=== PATIENT | female | born 1995 | race American Indian/Alaskan Native ===

== ENCOUNTER 2022-07-02 19:14 | Inpatient (IN) | payer OTHER ==
[2022-07-02] MEDS ORDERED: LIDOCAINE (2%) 20 MG/1 ML VIAL 20 ML MDV INFILTRATI ONE (20:16)
[2022-07-02] MEDS ORDERED: CARBOPROST TROMETHAMINE 250 MCG/1 ML INJ IM PRN (20:16)
[2022-07-02] MEDS ORDERED: miSOPROStol 200 MCG TAB PR PRN (20:16)
[2022-07-02] MEDS ORDERED: METHYLERGONOVINE MALEATE 0.2 MG/ML VIAL IM PRN (20:16)
[2022-07-02] MEDS ORDERED: ePHEDrine SULFATE 50 MG/1 ML INJ IV PRN ×2 (20:16→22:27)
[2022-07-02] MEDS ORDERED: BUTORPHANOL 2 MG/1 ML INJ IV PRN ×2 (20:16)
[2022-07-02] MEDS ORDERED: OXYTOCIN 10 UNIT/1 ML INJ IM PRN (20:16)
[2022-07-02] MEDS ORDERED: ONDANSETRON 4 MG/2 ML INJ IV PRN (20:16)
[2022-07-02] MEDS ORDERED: AMPICILLIN/NS 2 GM/100 ML 2 GM/100 ML BAG IV ONE (20:16)
[2022-07-02] MEDS ORDERED: MINERAL OIL 30 ML ORAL LIQD PO PRN (20:16)
[2022-07-02] MEDS ORDERED: TERBUTALINE 1 MG/1 ML INJ SUB-Q PRN (20:16)
[2022-07-02] MEDS ORDERED: LOPERAMIDE 2 MG CAP PO PRN (20:16)
[2022-07-02] MEDS ORDERED: LACTATED RINGERS 1,000 ML ONE (20:20)
[2022-07-02] MEDS ORDERED: LACTATED RINGERS 1,000 ML IV SCH ×2 (20:30→23:15)
[2022-07-02 20:58] LABS: Hematocrit 34.6 % (30.3-42.9); Hemoglobin 11.4 gm/dl (10.1-14.3); Mean Corpuscular HGB Conc 33 % (30-34); Mean Corpuscular Volume 74 fl (79-97); Platelet Count 193 K/mm3 (140-440); Red Blood Count 4.64 M/mm3 (3.65-5.03)
[2022-07-02] MEDS ORDERED: OXYTOCIN DRIP 30 UNITS/500 ML BAG IV SCH ×2 (21:00→23:45)
[2022-07-02 21:32] LABS: Hepatitis C Virus Antibody Non-Reactive (NonReactive)
[2022-07-02] MEDS ORDERED: SODIUM CHLORIDE 0.9% 500 ML 500 ML IV ONE (21:41)
[2022-07-02 21:44] LABS: Alanine Aminotransferase 10 units/L (7-56); Uric Acid 4.8 mg/dL (3.5-7.6)
[2022-07-02] MEDS ORDERED: fentaNYL-BUPIV 2 MCG/ML-0.125% 200 MCG/100 ML BAG EPIDURAL SCH (22:27)
[2022-07-02] MEDS ORDERED: NALOXONE 0.4 MG/1 ML INJ IV PRN (22:27)
--- NOTE | 2022-07-02 22:29 | Anesthesia Consultation ---
Anesthesia Consult and Med Hx Date of service: 07/02/22 - Airway Anesthetic Teeth Evaluation: Good ROM Head & Neck: Adequate Mental/Hyoid Distance: Adequate Mallampati Class: Class II Intubation Access Assessment: Probably Good - Pulmonary Exam CTA: Yes - Cardiac Exam Cardiac Exam: RRR - Pre-Operative Health Status ASA Pre-Surgery Classification: ASA2 Proposed Anesthetic Plan: Epidural - Pulmonary Hx Smoking: No Hx Asthma: No Hx Respiratory Symptoms: No SOB: No COPD: No Home Oxygen Therapy: No Hx Pneumonia: No Hx Sleep Apnea: No - Cardiovascular System Hx Hypertension: No Hx Coronary Artery Disease: No Hx Heart Attack/AMI: No Hx Angina: No Hx Percutaneous Transluminal Coronary Angioplasty (PTCA): No Hx Cardia Arrhythmia: No Hx Pacemaker: No Hx Internal Defibrillator: No Hx Valvular Heart Disease: No Hx Heart Murmur: No Hx Peripheral Vascular Disease: No - Central Nervous System Hx Neuromuscular Disorder: No Hx Seizures: No CVA: No Hx Back Pain: No Hx Psychiatric Problems: No - Gastrointestinal Hx Ulcer: No Hx Gastroesophageal Reflux Disease: No - Endocrine Hx Renal Disease: No Hx End Stage Renal Disease: No Hx Cirrhosis: No Hx Liver Disease: No Hx Insulin Dependent Diabetes: No Hx Non-Insulin Dependent Diabetes: No Hx Thyroid Disease: No Hx Hypothyroidism: No Hx Hyperthyroidism: No - Hematic Hx Anemia: No Hx Sickle Cell Disease: No - Other Systems Hx Alcohol Use: No Hx Substance Use: No Hx Cancer: No Hx Obesity: No
--- NOTE | 2022-07-02 22:30 | Anesthesia Day of Surgery ---
Anesthesia Day of Surgery - Day of Surgery Patient Examined: Yes Patient H&P Reviewed: Yes Patient is NPO: Yes Beta Blockers: No Cardiac Clearance: No Pulmonary Clearance: No Gregorio's Test: N/A
--- NOTE | 2022-07-02 22:31 | Progress Note ---
Labor Epidural - Labor Epidural Start Time: 22:10 Stop Time: 22:16 Performed by:: SANTIAGO PARIS Procedure: Epidural Requested for Labor Pain. H&P and PT Chart reviewed and consent obtained. Time out performed and the procedure was explained, all questions answered. Patient was placed in a sitting position with monitors applied. The PTs back was prepped and draped in usual sterile fashion. The Skin was localized with 3 mL of 1% lidocaine at L3-L4. A 17-gauge Touhy epidural needle was advanced to ANDREA with saline at 7 cm and no blood/CSF was noted via epidural needle. Epidural catheter was advanced to 12 cm. There was negative aspiration for blood and CSF in the catheter and negative response to a test dose of 3 ml 1.5% lidocaine w/ Epi and a sterile dressing was applied Patient tolerated the procedure well and there were no immediate complications noted.
[2022-07-02] MEDS ORDERED: BICITRA ORAL LIQD 30ML PO ONE (23:09)
[2022-07-02] MEDS ORDERED: METOCLOPRAMIDE 10 MG/2 ML INJ IV ONE (23:09)
[2022-07-02] MEDS ORDERED: FAMOTIDINE 20 MG/2 ML INJ IV ONE (23:09)
[2022-07-02] MEDS ORDERED: BUPIVACAINE/PF (0.5%) 5 MG/1 ML 10 ML VIAL INFILTRATI ONE (23:11)
[2022-07-02] MEDS ORDERED: ePHEDrine SULFATE 50 MG/1 ML INJ ONE (23:17)
[2022-07-02] MEDS ORDERED: SUCCINYLCHOLINE CHLORIDE 200 MG/10 ML INJ MDV ONE (23:21)
[2022-07-02] MEDS ORDERED: CARBOPROST TROMETHAMINE 250 MCG/1 ML INJ IM ONE (23:21)
[2022-07-02] MEDS ORDERED: METHYLERGONOVINE MALEATE 0.2 MG/ML VIAL IM ONE (23:21)
[2022-07-02] MEDS ORDERED: miSOPROStol 200 MCG TAB ONE (23:21)
[2022-07-02] MEDS ORDERED: propofoL 200 MG/20 ML VIAL IV ONE (23:22)
[2022-07-02] MEDS ORDERED: WATER FOR IRRIG STERILE 1,500 ML BOTTLE IR ONE (23:36)
[2022-07-02] MEDS ORDERED: SODIUM CHLORIDE 0.9% IRR 1,500 ML BOTTLE IR ONE (23:36)
[2022-07-02] MEDS ORDERED: ceFAZolin/Water 2 GM/20 ML 2 GM/20 ML SYRINGE IV NR (23:45)
[2022-07-02] MEDS ORDERED: OXYTOCIN 10 UNIT/1 ML INJ ONE (23:47)
[2022-07-02] MEDS ORDERED: SODIUM CHLORIDE 0.9% 100 ML ONE (23:47)
[2022-07-02] MEDS ORDERED: ONDANSETRON 4 MG/2 ML INJ ONE (23:47)
[2022-07-02] MEDS ORDERED: PHENYLEPHRINE/NS 1,000 MCG/10 ML SYRINGE (OR USE) IV ONE (23:47)
[2022-07-03] MEDS ORDERED: LIDOCAINE MPF (2%) 20 MG/1 ML VIAL 5 ML ONE (00:06)
--- NOTE | 2022-07-03 00:39 | XRay Report ---
Pelvis single view INDICATION: Pelvic pain IMPRESSION: Postoperative changes of the pelvis are noted. No metallic foreign body appreciated. Signer Name: Chava Guerrero MD Signed: 07/03/2022 12:34 AM Workstation Name: [id number]
[2022-07-03] MEDS ORDERED: PROMETHAZINE 25 MG TAB PO PRN (00:43)
[2022-07-03] MEDS ORDERED: PROMETHAZINE 25 MG RECT SUPP PR PRN ×2 (00:43→09:00)
[2022-07-03] MEDS ORDERED: HYDROmorphone 1 MG/1 ML INJ IV PRN ×2 (00:43)
[2022-07-03] MEDS ORDERED: NALOXONE 0.4 MG/1 ML INJ IV PRN ×2 (00:43→07:38)
[2022-07-03] MEDS ORDERED: MORPHINE 4 MG/1 ML INJ IV PRN ×2 (00:43→08:30)
[2022-07-03] MEDS ORDERED: ONDANSETRON 4 MG/2 ML INJ IV PRN ×2 (00:43→08:30)
--- NOTE | 2022-07-03 00:58 | History and Physical Report ---
History of Present Illness Date of examination: 07/02/22 Date of admission: 07/02/22 23:54 Chief complaint: Painful contractions. History of present illness: * [1 set of twins] x2 previous cesareans. JOHN 06/23/22. Active labor. Insisting on delivering vaginally. Past History Past Medical History: no pertinent history Past Surgical History: section - Obstetrical History Expected Date of Delivery: 06/23/22 Actual Gestation: 41 Week(s) 3 Day(s) : 3 Para: 3 Medications and Allergies Allergies Allergy/AdvReac Type Severity Reaction Status Date / Time No Known Allergies Allergy Unverified 07/02/22 20:09 Active Meds: Active Medications Butorphanol Tartrate (Butorphanol 2 Mg/1 Ml Inj) 2 mg IV Q2H PRN PRN Reason: Pain , Severe (7-10) Butorphanol Tartrate (Butorphanol 2 Mg/1 Ml Inj) 1 mg IV Q2H PRN PRN Reason: Pain, Moderate(4-6) LABOR PAIN Carboprost Tromethamine (Carboprost Tromethamine 250 Mcg/1 Ml Inj) 250 mcg IM ONCE PRN PRN Reason: Uterine Bleeding Ephedrine Sulfate (Ephedrine Sulfate 50 Mg/1 Ml Inj) 10 mg IV Q2M PRN PRN Reason: Hypotension Hydromorphone HCl (Hydromorphone 1 Mg/1 Ml Inj) 0.5 mg IV Q5M PRN PRN Reason: BREAK Hydromorphone HCl (Hydromorphone 1 Mg/1 Ml Inj) 0.5 mg IV Q4H PRN PRN Reason: breakthrough pain > 7/10 Lactated Ringer's (Lactated Ringers) 1,000 mls @ 125 mls/hr IV DIRECT ORION Last Admin: 07/02/22 21:55 Dose: 125 mls/hr Oxytocin/Sodium Chloride (Pitocin/Ns 30 Unit/500ml) 30 units in 500 mls @ 40 mls/hr IV TITR ORION; Protocol Ampicillin Sodium (Ampicillin/Ns 1 Gm/50 Ml) 1 gm in 50 mls @ 100 mls/hr IV Q4H ORION; Protocol Fentanyl/Bupivacaine/Sodium Chlor (Fentanyl-Bupiv 2 Mcg/Ml-0.125%) 200 mcg in 100 mls @ 12 mls/hr EPIDURAL TITR ORION; Protocol Lactated Ringer's (Lactated Ringers) 1,000 mls @ 2,250 mls/hr IV PREOP ORION Stop: 07/03/22 23:42 Oxytocin/Sodium Chloride (Pitocin/Ns 30 Unit/500ml) 30 units in 500 mls @ 0 mls/hr IV TITR ORION; Protocol Fentanyl/Bupivacaine/Sodium Chlor (Fentanyl-Bupiv 2 Mcg/Ml-0.125%) 200 mcg in 100 mls @ 8 mls/hr EPIDURAL TITRATE ORION; Protocol Loperamide HCl (Loperamide 2 Mg Cap) 2 mg PO ONCE PRN PRN Reason: give with Hemabate Methylergonovine Maleate (Methylergonovine Maleate 0.2 Mg/Ml Vial) 0.2 mg IM ONCE PRN PRN Reason: Uterine Bleeding Mineral Oil (Mineral Oil 30 Ml Oral Liqd) 30 ml PO QHS PRN PRN Reason: Constipation Misoprostol (Misoprostol 200 Mcg Tab) 800 mcg AR ONCE PRN PRN Reason: Uterine Bleeding Morphine Sulfate (Morphine 4 Mg/1 Ml Inj) 2.5 mg IV Q15M PRN PRN Reason: BREAK Naloxone HCl (Naloxone 0.4 Mg/1 Ml Inj) 0.2 mg IV Q5MIN PRN PRN Reason: Respiratory sedation Naloxone HCl (Naloxone 0.4 Mg/1 Ml Inj) 0.2 mg IV Q2MIN PRN PRN Reason: Res Rate </= 8 or 02 SAT < 92% Ondansetron HCl (Ondansetron 4 Mg/2 Ml Inj) 4 mg IV Q8H PRN PRN Reason: Nausea And Vomiting Ondansetron HCl (Ondansetron 4 Mg/2 Ml Inj) 4 mg IV Q8H PRN PRN Reason: Nausea And Vomiting Oxytocin (Oxytocin 10 Unit/1 Ml Inj) 10 unit IM ONCE PRN PRN Reason: Uterine Bleeding Promethazine HCl (Promethazine 25 Mg Tab) 25 mg PO Q6H PRN PRN Reason: Nausea And Vomiting Promethazine HCl (Promethazine 25 Mg Rect Supp) 25 mg AR Q6H PRN PRN Reason: Nausea And Vomiting Sodium Chloride (Sodium Chloride 0.9% 10 Ml Flush Syringe) 10 ml IV PRN NR Terbutaline Sulfate (Terbutaline 1 Mg/1 Ml Inj) 0.25 mg SUB-Q ONCE PRN PRN Reason: Hyperstimulation/Hypertonicity Review of Systems All systems: negative Genitourinary: contractions - Vital Signs Vital signs: Vital Signs Pulse BP Pulse Ox 77 124/72 100 07/02/22 19:52 07/02/22 19:52 07/02/22 19:52 Temp Pulse Resp BP Pulse Ox 112 H 14 109/57 100 07/02/22 23:05 07/02/22 21:39 07/02/22 22:56 07/02/22 23:05 - Physical Exam Lungs: Positive: Normal air movement Abdomen: Positive: distention, normal bowel sounds Genitourinary (Female): Positive: normal external genitalia, normal perenium Vulva: both: normal Vagina: Positive: normal moisture. Negative: discharge Cervix: Negative: lesion, discharge Uterus: Positive: enlarged, normal contour Anus/Rectum: Positive: normal perianal skin Extremities: Positive: normal Deep Tendon Reflex Grade: Normal +2 - Obstetrical FHR: auscultation normal, category 2 Cervical Dilatation: 5 (Patient uncooperative, vag exam was brief.) Cervical Effacement Percentage: 100 station: 0 Uterine Contraction Pattern: Regular Uterine Contraction Intensity: Strong/Firm Results Result Diagrams: 07/02/22 20:15 07/02/22 20:15 Abnormal lab results 07/02/22 07/02/22 07/02/22 Range/Units 20:15 20:15 20:15 WBC 15.1 H (4.5-11.0) K/mm3 MCV 74 L (79-97) fl MCH 25 L (28-32) pg Lactate Dehydrogenase 323 H (91-180) units/L Crossmatch See Detail All other labs normal. Assessment and Plan - Patient Problems (1) with 41 completed weeks gestation Current Visit: Yes Status: Acute (2) Active labor Current Visit: Yes Status: Acute (3) Previous delivery affecting Current Visit: Yes Status: Acute Plan to address problem: Told of the risks of . Also told her delivery will be by if delivery not imminent or other indications emerge.
[2022-07-03] MEDS ORDERED: fentaNYL-BUPIV 2 MCG/ML-0.125% 200 MCG/100 ML BAG EPIDURAL SCH (01:00)
[2022-07-03] MEDS ORDERED: AMPICILLIN/NS 1 GM/50 ML 1 GM/50 ML BAG IV SCH (01:00)
--- NOTE | 2022-07-03 01:12 | Event Note ---
Date: 07/02/[address] ARM done with less than 2cc of clear amni fluid within the IUPC tubing. Cervix 7-8 cm. Station 0+2. 1+ caput. heart decels occurring. Stat called.
--- NOTE | 2022-07-03 01:23 | Operative Report ---
Operative Report Operative Report: Date of surgery: 07/02/2022 Preoperative diagnoses: 41 weeks 2 days gestation, distress, previous section, active labor Postoperative diagnoses: The same. Operation: Lower segment transverse delivery Surgeon:Padmini Calabrese MD Machine Shop Apprentice: Andrew Francisco CRNA Anesthesia: Epidural block plus general anesthesia. Estimated blood loss: 200 mL Complications: None Findings: Live baby boy, vertex deep in the pelvis, 1+ caput, no observable amniotic fluid, wrinkled skin. The fallopian tubes, ovaries and the uterus were all grossly normal. There was a taut band of adhesion binding the anterior surface of the uterus, just superior to the bladder reflection, to the anterior parietal peritoneum. Procedure in detail: The patient was taken to the operating room and given a spinal block. Patient was placed in the straight supine position and a Bucio catheter was inserted. The patient was prepped in the abdomen. The drapes were placed. A timeout was done. With the go ahead from the regional psychiatric director, a Pfannenstiel incision was made. This incision was carried across the subcutaneous layer to the fascia which was also divided transversely. The recti abdominis muscle flaps were stripped from the fascia using a combination of blunt and sharp dissections. The muscles were in the midline to gain access to the anterior parietal peritoneum which was divided after excluding any underlying viscera. The access to the peritoneal cavity was then widened by manual stretching. The bladder blade was applied. The utero vesicle peritoneal flap was divided transversely allowing the bladder to be displaced caudally. The uterine incision was placed in the lower segment transversely. The uterine incision was carried to the decidual layer. The uterine incision was extended on both sides using the bandage scissors. The amniotic sac was ruptured with clear fluid. The head was lifted out of the false maternal pelvis and delivered through the incision using fundal pressure combined with traction using the Kiwi. Extraction was difficult and required widening of the incision and reapplication of the Kiwi x3. The airways were bulb suctioned beginning with the mouth. Continuing fundal pressure combined with traction on the mandibular processes of the jaw delivered the rest of the baby. The umbilical cord was double clamped and divided. The baby was carefully transferred to the pediatric team. The placenta was manually removed from the uterine cavity. The uterine cavity was explored and was empty of any placental remnants. The uterine incision was repaired in 2 layers with #1 Vicryl. The surgical line on the uterus was hemostatic. The band of adhesions described above was divided with the Bovie. Hemostasis and the stumps were checked and were good. Blood and clots were cleared from the peritoneal cavity. The anterior parietal peritoneum was repaired with #1 Vicryl. The fascia was repaired with #1 Vicryl. The subcutaneous layer was made hemostatic using the Bovie before the skin was closed subcuticularly with 4-0 Vicryl. There were no complications. The estimated blood loss was 200 mL. All sponges and instrument counts were correct. An x-ray of the pelvis was obtained at the conclusion of the surgery and showed no evidence of any foreign body within. Patient was safely transferred to the recovery room.
[2022-07-03] MEDS ORDERED: MORPHINE 2 MG/1 ML INJ IV PRN ×3 (07:30→08:30)
[2022-07-03] MEDS ORDERED: IBUPROFEN 600 MG TAB PO PRN (07:38)
[2022-07-03] MEDS ORDERED: ACETAMINOPHEN 325 MG TAB PO PRN (08:00)
[2022-07-03] MEDS ORDERED: WITCH HAZEL/ GLYCERIN PAD TP PRN (08:00)
[2022-07-03] MEDS ORDERED: OXYTOCIN DRIP 30 UNITS/500 ML BAG IV SCH (08:00)
[2022-07-03] MEDS: ceFAZolin/NS 1 GM/50 ML 1 GM/50 ML BAG IV SCH ×2 (08:19→16:45)
[2022-07-03] MEDS ORDERED: KETOROLAC 30 MG/1 ML INJ IV PRN (08:30)
[2022-07-03] MEDS: KETOROLAC 30 MG/1 ML INJ IV PRN ×2 (08:42→13:42)
[2022-07-03] MEDS ORDERED: LANOLIN/ZINC/DIMETHICONE (LANSINOH) 7 GM TP PRN (09:00)
[2022-07-03 09:13] LABS: Amphetamine Screen,Urine Negative; Benzodiazepines Screen,Urine Negative; Cannabinoid Screen,Urine Negative; Cocaine Screen,Urine Negative; Methadone Screen,Urine Negative; Opiate Screen,Urine Negative
[2022-07-03 10:08] LABS: Color,Urine Straw (Yellow)
[2022-07-03] MEDS: PRENATAL VIT27-FE FUMARATE-FOLIC ACID VIT TAB PO SCH (10:50)
[2022-07-03] MEDS: HYDROcodone/ACETAMINOPHEN 5-325 MG TAB PO PRN ×3 (11:32→23:13)
[2022-07-03] MEDS: SIMETHICONE 80 MG CHEW TAB PO PRN (18:20)
--- NOTE | 2022-07-03 19:16 | Progress Note ---
Assessment and Plan - Patient Problems (1) with 41 completed weeks gestation Current Visit: Yes Status: Resolved (2) Active labor Current Visit: Yes Status: Resolved (3) Previous delivery affecting Current Visit: Yes Status: Chronic (4) Status post delivery Current Visit: Yes Status: Acute Plan to address problem: Stable. Subjective - Subjective Date of service: 07/03/22 Principal diagnosis: Status post day 1. Interval history: * [1 set of twins] x2 previous cesareans. JOHN 06/23/22. Active labor. Insisting on delivering vaginally. * * Had a delivery 07/02/22 * Stable Patient reports: appetite normal, voiding normally, pain well controlled, ambulating normally : doing well Objective - Vital Signs Latest vital signs: Vital Signs Temp Pulse Resp BP BP Pulse Ox Pulse Ox 07/03/22 18:14 98.2 F 80 20 116/73 100 07/03/22 09:20 98.4 F 87 18 120/55 98 98 07/03/22 08:50 83 97 07/03/22 08:45 72 98 07/03/22 08:40 74 97 07/03/22 08:35 84 100 07/03/22 08:30 87 98 07/03/22 08:25 95 H 99 07/03/22 08:20 88 97 07/03/22 08:15 85 99 07/03/22 08:13 98.1 F 16 07/03/22 08:10 81 99 07/03/22 08:05 78 98 07/03/22 08:00 98.1 F 78 18 98 98 07/03/22 07:55 76 99 07/03/22 07:50 81 100 07/03/22 07:45 83 99 07/03/22 07:40 84 99 07/03/22 07:35 81 98 07/03/22 07:34 76 106/59 07/03/22 07:30 79 100 07/03/22 07:25 73 99 07/03/22 07:20 72 100 07/03/22 07:15 81 99 07/03/22 07:10 73 96 07/03/22 07:05 93 H 100 07/03/22 07:02 79 89 07/03/22 07:00 79 100 07/03/22 06:55 74 98 07/03/22 06:50 83 93 08/30/22 06:45 84 100 07/03/22 06:40 79 99 07/03/22 06:35 84 100 07/03/22 06:34 76 105/57 07/03/22 06:30 83 98 07/03/22 06:25 89 97 07/03/22 06:20 96 H 99 07/03/22 06:15 82 99 07/03/22 06:10 87 98 07/03/22 06:05 92 H 98 07/03/22 06:00 83 98 07/03/22 05:55 95 H 98 07/03/22 05:50 80 96 07/03/22 05:45 81 97 07/03/22 05:40 83 97 07/03/22 05:35 76 96 07/03/22 05:34 79 104/55 07/03/22 05:30 81 96 07/03/22 05:25 94 H 95 07/03/22 05:20 83 97 07/03/22 05:15 78 96 07/03/22 05:10 85 97 07/03/22 05:05 92 H 96 07/03/22 05:02 81 91 07/03/22 05:00 86 97 07/03/22 04:56 83 94 07/03/22 04:55 80 99 07/03/22 04:50 86 98 07/03/22 04:45 82 97 07/03/22 04:40 80 98 07/03/22 04:35 81 98 07/03/22 04:34 77 111/56 07/03/22 04:30 84 98 07/03/22 04:25 95 H 99 07/03/22 04:20 85 97 07/03/22 04:15 83 98 07/03/22 04:10 79 98 07/03/22 04:05 77 98 07/03/22 04:00 98.8 F 74 99 07/03/22 03:55 78 98 07/03/22 03:50 79 98 07/03/22 03:45 73 99 07/03/22 03:40 76 99 07/03/22 03:35 95 H 99 07/03/22 03:30 76 99 07/03/22 03:25 71 99 07/03/22 03:20 82 100 08/30/22 03:19 84 113/56 08/30/22 03:15 78 99 07/03/22 03:10 80 99 07/03/22 03:05 75 99 07/03/22 03:00 69 99 07/03/22 02:55 66 99 07/03/22 02:50 71 99 07/03/22 02:49 68 130/59 07/03/22 02:45 68 100 07/03/22 02:40 79 98 07/03/22 02:35 78 100 07/03/22 02:30 70 100 07/03/22 02:25 71 98 07/03/22 02:20 69 100 07/03/22 02:19 62 131/71 07/03/22 02:15 60 123/64 99 07/03/22 02:11 100 07/03/22 02:10 75 99 07/03/22 02:05 78 98 07/03/22 02:00 65 100 07/03/22 01:55 65 99 07/03/22 01:50 81 98 07/03/22 01:34 55 L 17 125/75 07/03/22 01:30 98.1 F 07/03/22 01:15 98.0 F 61 17 133/72 07/03/22 01:00 58 L 10 L 129/60 07/03/22 00:45 97.5 F L 66 12 118/60 07/03/22 00:30 59 L 16 140/47 07/02/22 23:05 112 H 100 07/02/22 23:00 107 H 100 07/02/22 22:56 62 109/57 07/02/22 22:55 60 100 07/02/22 22:50 77 100 07/02/22 22:45 57 L 100 07/02/22 22:42 67 113/56 07/02/22 22:40 69 100 07/02/22 22:35 80 100 07/02/22 22:30 81 100 07/02/22 22:27 78 133/60 07/02/22 22:25 72 99 07/02/22 22:20 72 122/57 98 07/02/22 22:18 163/105 07/02/22 22:15 84 98 07/02/22 22:10 102 H 98 07/02/22 22:05 86 99 07/02/22 22:00 61 100 08/29/22 21:56 78 119/60 07/02/22 21:55 71 100 07/02/22 21:50 68 100 07/02/22 21:45 71 100 07/02/22 21:42 76 122/78 07/02/22 21:40 66 100 07/02/22 21:39 14 100 07/02/22 21:35 96 H 99 07/02/22 21:30 84 98 07/02/22 21:27 81 123/55 07/02/22 21:25 69 99 07/02/22 21:20 71 93 07/02/22 21:15 77 91 07/02/22 21:14 68 94 07/02/22 21:11 85 122/74 100 07/02/22 20:08 80 100 07/02/22 20:03 76 100 07/02/22 19:57 92 H 100 07/02/22 19:52 71 124/72 100 Intake and Output 07/03/22 07/03/22 07/03/22 07:59 15:59 23:59 Intake Total 50 360 Output Total 300 1700 750 Balance -300 -1650 -390 Intake: IV 50 ANCEF/NS 1 GM/50 ML 1 gm 50 In 50 ml @ 100 mls/hr IV Q8H [facility] Rx#:[id number] Oral 360 Output: Urine 300 1700 750 Uretheral (Bucio) 300 700 Void 1000 750 Other: Total, Intake Amount 360 Total, Output Amount 600 750 - Exam Lungs: Present: Normal air movement Abdomen: Present: normal appearance, soft, normal bowel sounds Uterus: Present: normal, firm Extremities: Present: normal Deep Tendon Reflex Grade: Normal +2 Incision: Present: normal, dry, intact - Labs Labs: Abnormal lab results 07/02/22 07/02/22 07/02/22 Range/Units 20:15 20:15 20:15 WBC 15.1 H (4.5-11.0) K/mm3 MCV 74 L (79-97) fl MCH 25 L (28-32) pg Lactate Dehydrogenase 323 H (91-180) units/L Urine WBC (Auto) (0.0-6.0) /HPF Crossmatch See Detail 07/03/22 Range/Units 08:26 WBC (4.5-11.0) K/mm3 MCV (79-97) fl MCH (28-32) pg Lactate Dehydrogenase (91-180) units/L Urine WBC (Auto) 24.0 H (0.0-6.0) /HPF Crossmatch
[2022-07-03] MEDS ORDERED: MAGNESIUM HYDROXIDE (MOM) ORAL LIQD UDC PO PRN (22:00)
[2022-07-03] MEDS ORDERED: SENNOSIDES 8.6 MG TAB PO PRN (22:00)
[2022-07-04 01:21] LABS: Hematocrit 27.8 % (30.3-42.9)
[2022-07-04] MEDS: IBUPROFEN 800 MG TAB PO PRN (02:51)
[2022-07-04] MEDS: SIMETHICONE 80 MG CHEW TAB PO PRN ×2 (08:17→23:55)
[2022-07-04] MEDS: HYDROcodone/ACETAMINOPHEN 5-325 MG TAB PO PRN ×3 (08:45→21:50)
[2022-07-04] MEDS: PRENATAL VIT27-FE FUMARATE-FOLIC ACID VIT TAB PO SCH (10:07)
--- NOTE | 2022-07-04 13:10 | Post Anesthesia Evaluation ---
- Post Anesthesia Evaluation Patient Participated: Yes Airway Patent: Yes Stable Respiratory Function: Yes Nausea/Vomiting: No Temp > 96.8F: Yes Pain Manageable: Yes Adequeate Hydration: Yes Anesthesia Complications: No Block Receding Appropriately: Yes Patient on Ventilator: No
--- NOTE | 2022-07-04 16:04 | Progress Note ---
Assessment and Plan - Patient Problems (1) with 41 completed weeks gestation Current Visit: Yes Status: Resolved (2) Active labor Current Visit: Yes Status: Resolved (3) Previous delivery affecting Current Visit: Yes Status: Chronic (4) Status post delivery Current Visit: Yes Status: Acute Plan to address problem: Stable. Subjective - Subjective Date of service: 07/04/22 Principal diagnosis: Status post day 2. Interval history: * [1 set of twins] x2 previous cesareans. JOHN 06/23/22. Active labor. Insisting on delivering vaginally. * * Had a delivery 07/02/22 * Stable * * 07/04/22 * Stable, ambulant. On her way downstairs to NICU to see her baby. * Patient reports: appetite normal, voiding normally, pain well controlled, ambulating normally : doing well Objective - Vital Signs Latest vital signs: Vital Signs Temp Pulse Resp BP Pulse Ox Pulse Ox 07/04/22 08:51 99 07/04/22 08:36 98.0 F 76 18 119/71 99 07/04/22 02:51 20 07/04/22 01:20 98.2 F 07/03/22 23:51 100.0 F H 90 20 116/66 99 07/03/22 23:13 20 07/03/22 20:38 20 07/03/22 20:27 99.4 F 92 H 20 115/71 100 07/03/22 19:45 98 07/03/22 18:14 98.2 F 80 20 116/73 100 Intake and Output 07/04/22 07/04/22 07/04/22 07:59 15:59 23:59 Intake Total 240 Balance 240 Intake: Oral 240 Other: Total, Intake Amount 240 # Voids Void 1 - Exam Lungs: Present: Normal air movement Abdomen: Present: normal appearance, soft, normal bowel sounds Uterus: Present: normal, firm Extremities: Present: normal Deep Tendon Reflex Grade: Normal +2 Incision: Present: normal, dry, intact - Labs Labs: Abnormal lab results 07/04/22 Range/Units 00:48 Hgb 9.0 L (10.1-14.3) gm/dl Hct 27.8 L D (30.3-42.9) %
--- NOTE | 2022-07-04 16:06 | Discharge Summary ---
Providers - Providers Date of Admission: 07/02/22 23:54 Date of discharge: 07/05/22 Attending physician: COLTON MIRANDA MD Primary care physician: COLTON MIRANDA MD Hospitalization Reason for admission: active labor, IUP at term, other (insisted on , then sectioned for distress.) Delivery: Procedure: repeat low transverse Episiotomy: none Laceration: none Incision: normal, dry, intact Other procedures: none complications: none Discharge diagnosis: IUP at term delivered baby: male Condition at discharge: Good Disposition: HOME / SELF CARE / HOMELESS - Discharge Diagnoses (1) with 41 completed weeks gestation Status: Resolved (2) Active labor Status: Resolved (3) Previous delivery affecting Status: Chronic (4) Status post delivery Status: Acute Plan - Provider Discharge Summary Activity: routine, no sex for 6 weeks, no heavy lifting 4 weeks, no strenuous exercise Diet: routine Instructions: routine Additional instructions: [] Smoking cessation referral if applicable(refer to patient education folder for contact #) [] Refer to [facility]'s [facility] Booklet Call your doctor immediately for: * Fever > 100.5 * Heavy vaginal bleeding ( >1 pad per hour) * Severe persistent headache * Shortness of breath * Reddened, hot, painful area to leg or breast * Drainage or odor from incision. * Keep incision clean and dry at all times and follow doctor's instructions regarding bathing/showering - Follow up plan Follow up: COLTON MIRANDA MD [Primary Care Provider] - 7 Days
--- NOTE | 2022-07-04 17:40 | Ultrasound Report ---
US abdomen complete INDICATION / CLINICAL INFORMATION: pain. COMPARISON: None available. FINDINGS: PANCREAS: No significant abnormality. ABDOMINAL AORTA: No significant abnormality. IVC: No significant abnormality. LIVER: No significant abnormality. PORTAL VEIN: Normal hepatopedal blood flow in the main portal vein. GALLBLADDER: Small amount of gallbladder sludge. There is no cholelithiasis. No gallbladder wall thic kening. BILE DUCTS: Common bile duct measures 2 mm. No significant abnormality. KIDNEYS: -- Right: No significant abnormality. -- Left: No significant abnormality. SPLEEN: No significant abnormality. FREE FLUID: None. ADDITIONAL FINDINGS: None. IMPRESSION: Gallbladder sludge. No sonographic findings of cholecystitis. No other significant abnormality. Signer Name: Davide Conrad MD Signed: 07/04/2022 5:36 PM Workstation Name: [employer]
--- NOTE | 2022-07-05 01:03 | Ultrasound Report ---
Pelvic ultrasound INDICATION: Pelvic pain FINDINGS: Uterus is enlarged in appearance measuring 18 x 9 x 13 cm. The endometrial thick ness measured 6 mm with minimal associated fluid. No abnormal Doppler flow was appreciated along the endometrium. There is a small amount of fluid within the upper aspect of the endometrium. Both ovarie s appear within normal limits. There is minimal free pelvic fluid. IMPRESSION: uterus, as above. Signer Name: Chava Guerrero MD Signed: 07/05/2022 12:59 AM Workstation Name: [email or web address]
[2022-07-05] MEDS: HYDROcodone/ACETAMINOPHEN 5-325 MG TAB PO PRN ×4 (01:49→16:07)
[2022-07-05] MEDS: IBUPROFEN 800 MG TAB PO PRN (04:50)
[2022-07-05] MEDS: PRENATAL VIT27-FE FUMARATE-FOLIC ACID VIT TAB PO SCH (11:02)
[2022-07-05 17:45] VITALS: BP 121/78
== END 2022-07-05 18:45 | disposition home or self-care (01) | DRG 766 ==
LOC: TRG 19:14 → APU 19:15 → LD 20:14 → TRG 23:53 → LD 23:54 → OB 07-03 08:56
PROVIDERS: ADMIT Obstetrics & Gynecology; ATTEND Obstetrics & Gynecology
PROC: 10D00Z1 Extraction of Products of Conception, Low, Open Approach (ICD-10-PCS; principal; 2022-07-02)
DX: O34.211 Maternal care for low transverse scar from previous cesarean delivery (principal); O77.9 Labor and delivery complicated by fetal stress, unspecified; Z3A.41 41 weeks gestation of pregnancy; Z37.0 Single live birth; Z20.822 Contact with and (suspected) exposure to COVID-19
CPT/HCPCS: 36415; 72170; 76700; 76856; 80307; 81001; 82565; 83615; 84450; 84460; 84550; 85014; 85018; 85027; 86592; 86706; 86762; 86803; 86850; 86900; 86901; 86920; 87086; 87806; 88307; G0378; J3490; J0290; J0330; J0690; J1170; J1885; J2210; J2270; J2370; J2405; J2590; J2704; J7120; U0003